=== PATIENT | male | born 1990 | race African-American/Black ===

== ENCOUNTER 2025-01-05 13:02 | Emergency (ER) | payer SELFPAY ==
--- NOTE | 2025-01-05 13:17 | ER ---
Nurse's Notes [facility] Name: Herson Ellis Age: 34 yrs Sex: Male : 1990 Arrival Date: 01/05/2025 Time: 13:02 Bed 15 Private MD: Diagnosis: Encounter for general adult medical examination without abnormal findings Presentation: 01/05 13:10 Chief complaint: EMS states: EMS states family pt is angry about something, they are jp5 unsure what pt is mad about. Pt has been walking around on [address] all day and laying down at business throughout the day today. EMS states they have had 3 visits with pt today and pt is uncooperative not speaking. Coronavirus screen: Client denies travel out of the [place] in the last 14 days. At this time, unable to obtain information related to travel outside the [place] At this time, the client does not indicate any symptoms associated with coronavirus-19. Ebola Screen: No symptoms or risks identified at this time. Initial Sepsis Screen: Does the patient meet any 2 criteria? No. Patient's initial sepsis screen is negative. Does the patient have a suspected source of infection? No. Patient's initial sepsis screen is negative. Risk Assessment: Do you want to hurt yourself or someone else? Patient reports no desire to harm self or others. Onset of symptoms was January 05, 2025. 13:10 Method Of Arrival: EMS: [facility] 13:10 Acuity: [id number] 3 jp5 Triage Assessment: 13:10 General: Appears in no apparent distress. unkempt, Behavior is calm, uncooperative. jp5 Pain: Denies pain. Historical: - Allergies: 13:13 No Known Allergies; jp5 - Immunization history:: Adult Immunizations unknown. - Infectious Disease History:: Denies. - Social history:: Patient/guardian denies using alcohol, street drugs, IV drugs. Assessment: 13:17 General: Unable to complete triage assessment, pt will not answer questions and began jp5 walking out of ER room. ER MD followed pt around ER, pt able to answer orientation questions correctly, pt is A\T\Ox4 and walked out of ER. Pt showed no signs of distress. No KIMBERLY on pt. . ED Course: 13:06 Patient arrived in ED. ll1 13:08 Pramod Ramirez DO is Attending Physician. ms3 13:10 Melida Cavazos, RN is Primary Nurse. jp5 13:13 Triage completed. jp5 13:13 Arm band placed on right wrist. jp5 Administered Medications: No medications were administered Outcome: 13:15 Discharged to home ambulatory, jp5 13:15 Condition: stable 13:15 Discharge instructions given to patient, Instructed on pt would not listen to instructions and walked out of ER 13:17 Discharge ordered by MD. ms3 13:23 Patient left the ED. jp5 Signatures: Celina Vines, RN RN ll1 Pramod Ramirez DO DO ms3 Melida Cavazos, RN RN jp5
--- NOTE | 2025-01-05 13:17 | EDPHYS ---
Physician Documentation [facility] Name: Herson Ellis Age: 34 yrs Sex: Male : 1990 Arrival Date: 01/05/2025 Time: 13:02 Bed 15 Private MD: ED Physician Pramod Ramirez HPI: 01/05 13:18 This 34 yrs old Black Male presents to ER via EMS with complaints of walking up and ms3 down [address] sleeping in front of offices. 13:18 34-year-old male presents to the emergency department via [facility] after walking up ms3 and down to [address] and sleeping in front of businesses. Patient has refused to talk with EMS. On exam patient denies pain. Patient states he would just like to sit in the room. Patient denies nausea, vomiting, chest pain, shortness of breath.. Historical: - Allergies: 13:13 No Known Allergies; jp5 - Immunization history:: Adult Immunizations unknown. - Infectious Disease History:: Denies. - Social history:: Patient/guardian denies using alcohol, street drugs, IV drugs. ROS: 13:18 Constitutional: Negative for fever, and chills. Cardiovascular: Negative for chest ms3 pain, and palpitations. Respiratory: Negative for shortness of breath, cough, wheezing, and pleuritic chest pain, Abdomen/GI: Negative for abdominal pain, nausea, vomiting, diarrhea, and constipation, MS/Extremity: Negative for injury and deformity, Psych: Negative for depression, anxiety, suicide ideation, homicidal ideation, and hallucinations, Exam: 13:18 Constitutional: This is a well developed, well nourished patient who is awake, alert, ms3 and in no acute distress. Head/Face: Normocephalic, atraumatic. Respiratory: Lungs have equal breath sounds bilaterally, clear to auscultation and percussion. No rales, rhonchi or wheezes noted. No increased work of breathing, no retractions or nasal flaring. Abdomen/GI: Soft, non-tender, with normal bowel sounds. No distension or tympany. No guarding or rebound. No evidence of tenderness throughout. 13:18 Skin: Warm, dry with normal turgor. Normal color with no rashes, no lesions, and no evidence of cellulitis. MS/ Extremity: Pulses equal, no cyanosis. Neurovascular intact. Full, normal range of motion. 13:18 Cardiovascular: Rate: tachycardic, Rhythm: regular, Pulses: no pulse deficits are appreciated, Heart sounds: normal, normal S1and S2, MDM: 13:08 Medical Screening Exam initiated ms3 13:18 Differential Diagnosis Rhabdo versus situational disorder versus electrolyte ms3 abnormality versus dehydration. Data reviewed: nurses notes, and as a result, I will discharge patient. Counseling: I had a detailed discussion with the patient and/or guardian regarding. Refusal of service: The patient/guardian displays adequate decision making capability and despite a detailed discussion of alternatives, benefits, risks, and consequences refuses: all lab tests. ED course: Patient has decided to refuse labs and IVF. At this time, I reevaluated the patient and discussed the following: a. Capacity: The patient has the capacity to communicate, understand information, and logically process the decision making process. b. Communication of risks: At bedside, I discussed potential risks, outcomes, and alternative approaches in a patientcentered manner. The patient was informed of the specific risks of undiagnosed illness, including worsening condition and . The patient understands that they are welcome to return at any time to complete the workup. Patient is discharged from my care with informed refusal.. Administered Medications: No medications were administered Disposition Summary: 01/05/25 13:17 Discharge Ordered Notes: Location: Home ms3 Condition: Stable ms3 Diagnosis - Encounter for general adult medical examination without abnormal findings ms3 Followup: ms3 - With: Private Physician - When: 2 - 3 days - Reason: Recheck today's complaints Discharge Instructions: - Discharge Summary Sheet ms3 - Medical Screening Exam ms3 Forms: - Medication Reconciliation Form ms3 - Antibiotic Education ms3 - Prescription Opioid Use ms3 - Patient Portal Instructions ms3 - Leadership Thank You Letter ms3 Signatures: Dispatcher [employer] EDPramod Barnard DO DO ms3 Melida Cavazos, RN RN jp5
== END 2025-01-05 13:23 | disposition home or self-care (01) ==
LOC: ER 13:02
DX: Z71.1 Person with feared health complaint in whom no diagnosis is made (principal)
CPT/HCPCS: 99283

== ENCOUNTER 2025-01-07 01:28 | Emergency (ER) | payer SELFPAY ==
[2025-01-07 02:04] LABS: Absolute Lymphocytes (CBC) 1.5 K/uL (0.7-4.9); Hematocrit 44.9 % (39.6-49.0); Hemoglobin 15.6 g/dL (13.6-17.9); MCH 29.5 pg (27.0-35.0); MCHC 34.8 g/dL (32.0-36.0); MCV 84.8 fL (80-100); MPV 8.9 fL (7.6-11.3); Nucleated RBC Absolute Count 0.0 (0-0); Nucleated Red Blood Cells % 0.1 % (0-0); RBC Red Blood Cell Count 5.30 M/uL (4.33-5.43); White Blood Count 7.20 thou/uL (4.3-10.9)
[2025-01-07 02:13] LABS: PT Prothrombin Time 13.1 SECONDS (10-13.0); PTT, Activated Partial Thromb 28.8 SECONDS (27.2-37.4); Protime INR 1.16
[2025-01-07 02:24] LABS: ALT/SGPT 37.0 U/L (16-61); AST/SGOT 35.0 U/L (15-37); Albumin 4.5 g/dL (3.4-5.0); Albumin/Globulin Ratio 1.0 (1.1-1.8); Alkaline Phosphatase 53.0 U/L (45-117); Anion Gap 11.0 mEq/L (5.0-15.0); BUN Blood Urea Nitrogen 38.0 mg/dL (7-18); Bilirubin Indirect, Calculated 0.7 mg/dL (0.2-0.8); Globulin 4.7 g/dL (2.3-3.5); Glucose Level 112.0 mg/dL (74-106); Potassium 4.0 mEq/L (3.5-5.1); Troponin High Sensitivity 20.0 pg/mL (<58.9)
--- NOTE | 2025-01-07 02:29 | RAD REPORT ---
EXAM: CT Head Without Intravenous Contrast CLINICAL HISTORY: The patient is 34 years old and is Male; MENTAL STATUS CHANGE TECHNIQUE: Axial computed tomography images of the head/brain without intravenous contrast. Sagittal and cor onal reformatted images were created and reviewed. This CT exam was performed using one or more of the following dose reduction techniques: automated exposure control, adjustment of the mA and/or kV according to patient size, and/or use of iterative reconstruction technique. COMPARISON: No relevant prior studies available. FINDINGS: BRAIN: Unremarkable. The ramos-white matter differentiation is preserved . No hemorrhage. No s ignificant white matter disease. No edema. No extra-axial fluid collections. VENTRICLES: Unremarkable. No ventriculomegaly. BONES/JOINTS: No acute fracture. SOFT TISSUES: Unremarkable. SINUSES: Unremarkable as visualized. No acute sinusitis. MASTOID AIR CELLS: Unremarkable as visualized. No mastoid effusion. ORBITS: Unremarkable as visualized. IMPRESSION: No acute intracranial findings. Electronically signed by: Elisa Oliver MD 01/07/2025 02:26 AM CDT RP Due to temporary technical issues with the PACS/[employer] reporting system, reports are being servando d by the in-house radiologist without review as a courtesy to ensure prompt reporting the interpreting radiologist is fully responsible for the content of the report. Transcribed Date/Time: 01/07/2025 2:29 AM
--- NOTE | 2025-01-07 03:31 | RAD REPORT ---
EXAM: CT Angiography Head With Intravenous Contrast CLINICAL HISTORY: The patient is 34 years old and is Male; CONFUSED TECHNIQUE: Axial computed tomographic angiography images of the head with intravenous contrast. S agittal and coronal reformatted images were created and reviewed. This CT exam was performed using one or more of the following dose reduction techniques: automated exposure control, adjustmen t of the mA and/or kV according to patient size, and/or use of iterative reconstruction technique. MIP reconstructed images were created and reviewed. COMPARISON: No relevant prior studies available. FINDINGS: Right internal carotid artery: No acute findings. Intracranial segment is patent with no signif icant stenosis. No aneurysm. Right anterior cerebral artery: Unremarkable. No occlusion or significant stenosis. No aneury sm. Right middle cerebral artery: Unremarkable. No occlusion or significant stenosis. No aneurysm . Right posterior cerebral artery: Unremarkable. No occlusion or significant stenosis. No aneur ysm. Right vertebral artery: Unremarkable as visualized. Left internal carotid artery: No acute findings. Intracranial segment is patent with no signifi cant stenosis. No aneurysm. Left anterior cerebral artery: Unremarkable. No occlusion or significant stenosis. No aneurys m. Left middle cerebral artery: Unremarkable. No occlusion or significant stenosis. No aneurysm. Left posterior cerebral artery: Unremarkable. No occlusion or significant stenosis. No aneury sm. Left vertebral artery: Unremarkable as visualized. Basilar artery: Unremarkable. No occlusion or significant stenosis. No aneurysm. * A single impression for all exams can be found at the end of this report EXAM: CT Angiography Neck With Intravenous Contrast CLINICAL HISTORY: The patient is 34 years old and is Male; CONFUSED TECHNIQUE: Routine carotid CT angiography protocol was performed with intravenous contrast. NASCE T criteria using the distal ICAs for comparison were used for evaluation of stenoses. Sagittal and coronal reformatted images were created and reviewed. This CT exam was performed using one or m ore of the following dose reduction techniques: automated exposure control, adjustment of the mA and/or kV according to patient size, and/or use of iterative reconstruction technique. MIP reconstr ucted images were created and reviewed. COMPARISON: None. FINDINGS: VASCULATURE: Right common carotid artery: Unremarkable. No occlusion or significant stenosis. No dissectio n. Right internal carotid artery: Unremarkable. Extracranial segment is patent with no occlusion o r significant stenosis. No dissection. Right external carotid artery: Unremarkable. No occlusion. Right vertebral artery: Unremarkable. No occlusion or significant stenosis. No dissection. Left common carotid artery: Unremarkable. No occlusion or significant stenosis. No dissection . Left internal carotid artery: Unremarkable. Extracranial segment is patent with no occlusion or significant stenosis. No dissection. Left external carotid artery: Unremarkable. No occlusion. Left vertebral artery: Unremarkable. No occlusion or significant stenosis. No dissection. NECK: Bones/joints: Unremarkable. No acute fracture. Soft tissues: Unremarkable. Lung apices: Clear. CAROTID STENOSIS REFERENCE USING NASCET CRITERIA: % ICA stenosis = (1 - narrowest ICA diameter/diameter of distal cervical ICA) x 100. Mild - <50% stenosis. Moderate - 50-69% stenosis. Severe - 70-94% stenosis. Near occlusion - 95-99% stenosis. Occluded - 100% stenosis. * A single impression for all exams can be found at the end of this report IMPRESSION: CT Angiography Head With Intravenous Contrast: No occlusion or significant stenosis. No aneurysm. CT Angiography Neck With Intravenous Contrast: No significant stenosis. No dissection or occlusion. Electronically signed by: Yovany Powell MD 01/07/2025 02:54 AM CDT RP 8 Due to temporary technical issues with the PACS/[employer] reporting system, reports are being servando d by the in-house radiologist without review as a courtesy to ensure prompt reporting the interpreting radiologist is fully responsible for the content of the report. Transcribed Date/Time: 01/07/2025 3:30 AM
[2025-01-07] MEDS ORDERED: NA CHLORIDE 0.9% 2,000 ML ONE (04:30)
--- NOTE | 2025-01-07 05:52 | RAD REPORT ---
EXAM: XR Chest, 1 View CLINICAL HISTORY: The patient is 34 years old and is Male; TRAUMA TECHNIQUE: Frontal view of the chest. COMPARISON: No relevant prior studies available. FINDINGS: LUNGS: Unremarkable. No consolidation. PLEURAL SPACE: Unremarkable. No pneumothorax. HEART: Unremarkable. No cardiomegaly. MEDIASTINUM: Unremarkable. Normal mediastinal contour. BONES/JOINTS: Unremarkable. No acute fracture. UPPER ABDOMEN: Unremarkable as visualized. IMPRESSION: No acute cardiopulmonary process. Electronically signed by: Elisa Oliver MD 01/07/2025 02:26 AM CDT Due to temporary technical issues with the PACS/[employer] reporting system, reports are being servando d by the in-house radiologist without review as a courtesy to ensure prompt reporting. The interpreting radiologist is fully responsible for the content of the report. Transcribed Date/Time: 01/07/2025 5:52 AM
--- NOTE | 2025-01-07 06:23 | EDPHYS ---
Physician Documentation [facility] Name: Herson Ellis Age: 34 yrs Sex: Male : 1990 Arrival Date: 01/07/2025 Time: 01:28 Bed IW10 Private MD: ED Physician Kushal Dupont HPI: 01/07 06:07 This 34 yrs old Black Male presents to ER via EMS with complaints of Altered Mental tt7 Status. 06:07 Patient was found on the shoulder of the road laying down, he was awake but would only tt7 respond to some questions with one-word answers, he was staring straight ahead and laying supine with arms stiff out to his side, apparently EMS had responded to multiple calls yesterday regarding this patient and headache acting abnormally, at that time he was awake and communicative, HPI is limited due to patient not answering my questions other than the stated "water". Historical: - Allergies: 02:01 Unable to obtain; lg3 - Home Meds: 02:01 Unable to obtain [Active]; lg3 - PMHx: 02:01 Unable to Obtain; lg3 - PSHx: 02:01 Unable to Obtain; lg3 - Immunization history:: Adult Immunizations unknown. - Infectious Disease History:: Denies. - Social history:: Smoking status: unknown. ROS: 06:09 Constitutional: negative for fever. tt7 06:09 Unable to obtain ROS due to patient being uncooperative, Exam: 06:09 Constitutional: vital signs reviewed, well appearing. Head/Face: normocephalic, tt7 atraumatic. Eyes: no conjunctival injection, anicteric sclerae, PERRL. ENT: mucus membranes moist. Neck: trachea midline, no JVD, no meningismus. Chest/axilla: normal chest wall appearance and motion, nontender, no crepitus. Cardiovascular: regular rate and rhythm, no murmurs, no rubs, no lower extremity edema. Respiratory: normal respiratory effort, no accessory muscle use, lungs CTAB. Abdomen/GI: soft, nondistended, nontender, no guarding or rebound Skin: warm, dry, intact, normal turgor, normal color, no rash. MS/ Extremity: normal ROM of extremities, no gross deformities. 06:09 Neuro: Orientation: unable to test, the patient refuses to cooperate, Mentation: responsive to voice Memory: unable to test, the patient refuses to cooperate, Cranial nerves: unable to test, the patient refuses to cooperate, Cerebellar function: unable to test, the patient refuses to cooperate, Motor: moves all fours, Sensation: unable to test, the patient refuses to cooperate, 06:09 Psych: Behavior/mood is uncooperative, Affect is flat, Vital Signs: 02:16 BP 143 / 85; Pulse 67; Resp 17 S; Temp 97.9(A); Pulse Ox 99% on R/A; Weight 90.72 kg lg3 (R); Height 6 ft. 4 in. (R); 03:17 BP 143 / 89; Pulse 87; Resp 19; Pulse Ox 97% on R/A; mf3 06:14 BP 119 / 79; Pulse 71; Resp 17 S; Pulse Ox 98% on R/A; lg3 02:16 Body Mass Index 24.34 (90.72 kg, 193.04 cm) lg3 NIH Stroke Scale Scores: 02:01 NIHSS Score: 0 lg3 MDM: 01:32 Medical Screening Exam initiated tt7 06:12 Differential Diagnosis: CVA, electrolyte abnormality, alcohol intoxication, tt7 hypoglycemia, intracranial bleed, drug intoxication, psychiatric disorder. Data reviewed: vital signs, nurses notes, old medical records, lab test result(s), cardiac enzymes, CBC, drug level(s), electrolytes, hepatic panel, EKG, radiologic studies, CT scan, plain films. Test considered but Not performed: MRI: not available. Historians other than the Patient: EMS: . ED course: I have reviewed and independently interpreted the patient's chest x-ray. On my interpretation, chest x-ray demonstrates no radiographic evidence of acute cardiopulmonary disease. I have reviewed and independently interpreted the patient's EKG performed on 01/07/2025 at 0200. On my interpretation, sinus bradycardia, ventricular rate 58 bpm, normal axis, normal QRS interval, normal ST segments, no STEMI. ED course: 34-year-old who presented with altered mental status, was awake but very uncooperative, had a bizarre affect, patient's vital signs were stable, neurologic exam was limited due to the patient's uncooperation, he was taken to CT immediately where noncontrast CT imaging of the brain was performed, on my interpretation there was no intracranial hemorrhage, CT angiograms were performed which did not show any large vessel occlusion, remainder of stroke workup was performed, EKG was reassuring, troponin was negative, laboratory studies did not show any significant acute abnormalities requiring further evaluation, patient would intermittently have bizarre behavior and become agitated, he was given 2 L of IV fluid and IV droperidol for his agitation, suspect that his symptoms are due to drug abuse, UDS is pending, I have very low suspicion that patient is having a medical cause of his altered mental status, apparently for the past several days he has been upset at family and has been very uncooperative and acting strange, refusing to cooperate with EMS or medical staff, patient's brother came to visit him in the emergency department and patient was acting appropriately and interactive, patient's brother left it once again became agitated and uncooperative, we will continue to observe the patient in the emergency department but I do not suspect dangerous emergent condition. 06:23 ED course: Emergency department evaluation is reassuring. I do not suspect tt7 life-threatening process. Patient is stable and not in need of emergent medical intervention. I had a detailed discussion with the patient regarding the historical points, exam findings, emergency department evaluation, diagnostic results, and the discharge diagnosis. I discussed outpatient management of the patient's condition. I discussed the need for outpatient follow-up with primary care and relevant specialist. I discussed return precautions including the need to return to the ED if symptoms do not improve, worsen, or if there are any questions or concerns that arise at home. The patient was discharged in stable condition. 11:22 Counseling: I had a detailed discussion with the patient and/or guardian regarding the rn historical points, exam findings, and any diagnostic results supporting the discharge/admit diagnosis, lab results, radiology results, the need for outpatient follow up, to return to the emergency department if symptoms worsen or persist or if there are any questions or concerns that arise at home. ED course: After medication with Haldol, patient became more communicative, pleasant and refuses psychiatric transfer. Patient is not suicidal or homicidal. Patient walked out of emergency room on his own power. No indication at this time to get emergency skilled nursing order.. 01/07 01:33 Order name: Basic Metabolic Panel; Complete Time: 03:07 tt7 01/07 01:33 Order name: CBC with Diff; Complete Time: 03:07 01/07 01:33 Order name: High Sensitivity Troponin; Complete Time: 03:07 01/07 01:33 Order name: Protime (+inr); Complete Time: 03:07 01/07 01:33 Order name: Ptt, Activated; Complete Time: 03:07 01/07 01:34 Order name: Hepatic Function; Complete Time: 03:07 01/07 04:32 Order name: CREATININE WHOLE BLOOD; Complete Time: 05:58 EDMS 01/07 01:29 Order name: CT Head Brain wo Cont; Complete Time: 07:08 kmf 01/07 01:33 Order name: CT Head Angio; Complete Time: 07:08 01/07 01:33 Order name: CT Neck Angio; Complete Time: 07:08 01/07 01:33 Order name: Stroke CXR 1 View; Complete Time: 07:08 01/07 01:33 Order name: Accucheck; Complete Time: 02:05 01/07 01:33 Order name: Cardiac monitoring; Complete Time: 02:05 01/07 01:33 Order name: EKG - Nurse/Tech; Complete Time: 02:05 01/07 01:33 Order name: IV Saline Lock; Complete Time: 02:05 01/07 01:33 Order name: Labs collected and sent; Complete Time: 02:05 01/07 01:33 Order name: NPO; Complete Time: 02:05 01/07 01:33 Order name: O2 Per Protocol; Complete Time: 02:05 01/07 01:33 Order name: O2 Sat Monitoring; Complete Time: 02:10 01/07 01:33 Order name: Stroke Swallow Screen; Complete Time: 02:10 Administered Medications: 04:46 Drug: Droperidol IVP 2.5 mg IVP once Route: IVP; Site: right antecubital; lg3 06:15 Follow up: Response: No adverse reaction; Marked relief of symptoms; RASS: Drowsy (-1) lg3 04:46 Drug: NS 0.9% IV 2000 ml IV at 1 bolus Per protocol; to be given as a bolus over 60 lg3 minutes Route: IV; Rate: 1 bolus; Site: left antecubital; 06:15 Follow up: Response: No adverse reaction; IV Status: Completed infusion; IV Intake: lg3 2000ml 08:40 Drug: HALdol (as decanoate) IM 5 mg IM once Route: IM; Site: right deltoid; jl7 08:42 Not Given (Duplicate Order): haloperidol2.5 mg IVP once rn Disposition: 06:24 Co-signature as Attending Physician, Jeb Desouza DO. tt7 Disposition Summary: 01/07/25 11:24 Discharge Ordered Notes: Location: Home(01/07/25 11:24) rn Problem: new(01/07/25 11:24) rn Symptoms: have improved(01/07/25 11:24) rn Condition: Stable(01/07/25 11:24) rn Diagnosis - Catatonic disorder due to known physiological condition(01/07/25 11:24) rn - Altered mental status, unspecified(01/07/25 11:24) rn - Dehydration rn Followup: rn - With: Private Physician - When: As needed - Reason: Recheck today's complaints, Re-evaluation by your physician Forms: - Medication Reconciliation Form rn - Antibiotic beehive kiln charcoal burner - Prescription Opioid Use rn - Patient Portal Instructions rn - Leadership Thank You Letter rn NIH Stroke Scale - NIH Stroke Score Date: 01/07/2025 Time: 02:01 Total Score = 0 10. Dysarthria (speech clarity - read or repeat words) - 0(Normal) 11. Extinction and Inattention (visual/tactile/auditory/spatial/personal) - 0(No abnormality) 1a. Level of Consciousness (LOC) - 0(Alert) 1b. Level of Consciousness (LOC) (Month \\T\\ Age) - 0(Both) 1c. LOC Commands (Open \\T\\ Closes Eyes/Convertible Sofa Bedspring Tester) - 0(Both) 2. Best Gaze (Lateral Gaze Paresis) - 0(Normal) 3. Visual Field Loss - 0(No visual loss) 4. Facial Palsy - 0(Normal) 5a. Left Arm: Motor (10-second hold) - 0(No drift) 5b. Right Arm: Motor (10-second hold) - 0(No drift) 6a. Left Leg: Motor (5-second hold - always test supine) - 0(No drift) 6b. Right Leg: Motor (5-second hold - always test supine) - 0(No drift) 7. Limb Ataxia (finger/nose \\T\\ heel/navarro - test with eyes open) - 0(Absent) 8. Sensory Loss (pinprick arms/legs/face) - 0(Normal) 9. Best Language: Aphasia (description/naming/reading) - 0(No aphasia) Initials: lg3 Signatures: Dispatcher [employer] EDMS Kushal Dupont MD MD rn Leal, Jahala RN RN jl7 Olivia Rivers RN RN lg3 Jeb Desouza, DO tt7 Corrections: (The following items were deleted from the chart) 01:34 01:34 BASIC METABOLIC PANEL+C.LAB.BRZ ordered. EDMS EDMS 01:34 01:34 CBC+H.LAB.BRZ ordered. EDMS EDMS 01:34 01:34 Troponin High Sensitivity+C.LAB.BRZ ordered. EDMS EDMS 01:34 01:34 PROTIME (+INR)+COAG.LAB.BRZ ordered. EDMS EDMS 01:34 01:34 PTT, ACTIVATED+COAG.LAB.BRZ ordered. EDMS EDMS 01:34 01:34 Head Angio+CT.RAD.BRZ ordered. EDMS EDMS 01:34 01:34 Neck Angio+CT.RAD.BRZ ordered. EDMS EDMS 01:34 01:34 Chest Single View+RAD.RAD.BRZ ordered. EDCO EDMS 07:58 06:22 Home tt7 rn 07:58 06:22 an acute exacerbation tt7 rn 07:58 06:22 have improved tt7 rn 07:58 06:22 Stable tt7 rn 07:58 06:22 Restlessness and agitation tt7 rn 07:58 06:23 ELEVATED SERUM CREATININE tt7 rn 11: 07:58 rn rn 11: 07:58 Psych Facility rn rn 11: 07:58 Higher level of care rn rn 11: 07:58 Stable rn rn 11: 07:58 an ongoing problem rn rn 11: 07:58 are unchanged rn rn 11: 07:58 Catatonic disorder due to known physiological condition rn rn 11: 07:58 Altered mental status, unspecified rn rn
--- NOTE | 2025-01-07 06:23 | ER ---
Nurse's Notes [facility] Name: Herson Ellis Age: 34 yrs Sex: Male : 1990 Arrival Date: 01/07/2025 Time: 01:28 Bed IW10 Private MD: Diagnosis: Catatonic disorder due to known physiological condition;Altered mental status, unspecified;Dehydration Presentation: 01/07 01:59 Chief complaint: EMS states: [place] [address] [place]. PT not lg3 answering/following commands for EMS. On arrival to ED, PT would only state "Water" and not answering questions. Once in room, PT verbalizes wants to staff and family at bedside. complaints of pain to feet and ankles. Coronavirus screen: Client denies travel out of the [place] in the last 14 days. At this time, the client does not indicate any symptoms associated with coronavirus-19. Ebola Screen: No symptoms or risks identified at this time. Risk Assessment: Do you want to hurt yourself or someone else? Unable to obtain. Onset of symptoms is unknown. 01:59 Method Of Arrival: EMS: [facility] lg3 01:59 Acuity: [id number] 3 lg3 01:59 Initial Sepsis Screen: Does the patient meet any 2 criteria? No. Patient's initial lg3 sepsis screen is negative. Does the patient have a suspected source of infection? No. Patient's initial sepsis screen is negative. Triage Assessment: 02:01 General: Appears in no apparent distress. comfortable, Behavior is calm, flat, quiet. lg3 Pain: Complains of pain in right foot and left foot. EENT: No deficits noted. No signs and/or symptoms were reported regarding the EENT system. Neuro: Cortes Agitation-Sedation Scale (RASS): 0 - Alert and Calm Level of Consciousness is awake, Oriented to person, Speech is normal, Facial symmetry appears normal, Pupils are PERRLA, Intact. Cardiovascular: No deficits noted. Capillary refill < 3 seconds Clubbing of nail beds is absent JVD is absent Patient's skin is warm and dry. Respiratory: No deficits noted. Airway is patent Respiratory effort is even, unlabored, Respiratory pattern is regular, symmetrical. GI: No deficits noted. No signs and/or symptoms were reported involving the gastrointestinal system. Abdomen is round non-distended. : No signs and/or symptoms were reported regarding the genitourinary system. Derm: No deficits noted. No signs and/or symptoms reported regarding the dermatologic system. Skin is intact, is healthy with good turgor, Skin is dry, Skin is normal, Skin temperature is warm. Musculoskeletal: No deficits noted. No signs and/or symptoms reported regarding the musculoskeletal system. Circulation, motion, and sensation intact. Range of motion: intact in all extremities. Historical: - Allergies: 02:01 Unable to obtain; lg3 - Home Meds: 02:01 Unable to obtain [Active]; lg3 - PMHx: 02:01 Unable to Obtain; lg3 - PSHx: 02:01 Unable to Obtain; lg3 - Immunization history:: Adult Immunizations unknown. - Infectious Disease History:: Denies. - Social history:: Smoking status: unknown. Screenin:04 [facility] ED Fall Risk Assessment (Adult) History of falling in the last 3 months, lg3 including since admission No falls in past 3 months (0 pts) Confusion or Disorientation No (0 pts) Intoxicated or Sedated No (0 pts) Impaired Gait No (0 pts) Mobility Assist Device Used No (0 pt) Altered Elimination No (0 pt) Score/Fall Risk Level 0 - 2 = Low Risk Oriented to surroundings, Maintained a safe environment, Educated pt \\T\\ family on fall prevention, incl call for assistance when getting out of bed, Assessed \\T\\ reinforced patient's understanding of fall precautions. Abuse screen: Denies threats or abuse. Denies injuries from another. Nutritional screening: No deficits noted. Tuberculosis screening: No symptoms or risk factors identified. 02:11 [place] Swallow Protocol Exclusion Criteria: Unable to remain alert for testing: No NPO lg3 for medical/surgical reason by provider order No Exclusion Criteria Result: Proceed Brief Cognitive Screen What is your name? Normal, Where are you right now? Normal, What year is it? Normal. Oral Mechanism Examination Facial Symmetry: Normal, Motion: Normal, Lip Closure: Normal, Oral Mechanism Result: Normal. 3 oz Water Swallow Challenge: Pt able to drink all water without stopping, coughing, choking or throat clearing: Yes Result: PASS. Assessment: 02:04 General: see triage assessment. lg3 03:00 Reassessment: No changes from previously documented assessment. Patient and/or family lg3 updated on plan of care and expected duration. Pain level reassessed. General: Appears in no apparent distress. Behavior is anxious, restless. 05:04 Reassessment: Patient appears in no apparent distress at this time. No changes from lg3 previously documented assessment. Patient and/or family updated on plan of care and expected duration. Pain level reassessed. Patient is alert, oriented x 3, equal unlabored respirations, skin warm/dry/pink. 06:14 Reassessment: Patient appears in no apparent distress at this time. No changes from lg3 previously documented assessment. Patient and/or family updated on plan of care and expected duration. Pain level reassessed. Patient is alert, oriented x 3, equal unlabored respirations, skin warm/dry/pink. 07:15 Reassessment: Uncle Viral [phone]. hb 07:59 Reassessment: Uncle at bedside with Dr. Dupont to discuss POC. Pt not responding, hb looking around without interacting or answering questions, uncle concerned about patient safety due to repeated episodes over the last few days where pt has been found lying in roadways, involving EMS and PD. 08:45 Reassessment: Pt refusing vitals equipment and telemetry monitor at this time, SHON estrada notifed. 09:32 Reassessment: pt up walking, oriented to person, place, time, pt returned to ER bed 8, Dr. Dupont Notified. 10:44 Reassessment: pt noted to be walking out of room, asked pt if he wants to speak to the doctor, no response, asked pt if he spoke with [facility] screener, no response, continued walking out of dept , steady gait , NAD. Vital Signs: 02:16 BP 143 / 85; Pulse 67; Resp 17 S; Temp 97.9(A); Pulse Ox 99% on R/A; Weight 90.72 kg lg3 (R); Height 6 ft. 4 in. (R); 03:17 BP 143 / 89; Pulse 87; Resp 19; Pulse Ox 97% on R/A; 3 06:14 BP 119 / 79; Pulse 71; Resp 17 S; Pulse Ox 98% on R/A; lg3 02:16 Body Mass Index 24.34 (90.72 kg, 193.04 cm) lg3 NIH Stroke Scale Scores: 02:01 NIHSS Score: 0 3 ED Course: 01:29 Patient arrived in ED. kmf 01:32 Jeb Desouza DO is Attending Physician. tt7 01:51 Stroke CXR 1 View In Process Unspecified. EDMS 01:52 CT Head Brain wo Cont In Process Unspecified. EDMS 01:52 CT Head Angio In Process Unspecified. EDMS 01:52 CT Neck Angio In Process Unspecified. EDMS 01:59 Olivia Rivers, RN is Primary Nurse. lg3 02:01 Triage completed. lg3 02:01 Arm band placed on right wrist. lg3 02:04 Patient has correct armband on for positive identification. Placed in gown. Bed in low lg3 position. Call light in reach. Side rails up X2. Client placed on continuous cardiac and pulse oximetry monitoring. NIBP monitoring applied. vehicle monitor technician on. Door closed. Noise minimized. Warm blanket given. Pillow given. Family accompanied patient. 02:04 Initial lab(s) drawn, by me, sent to lab. EKG done, by ED staff, reviewed by Jeb lg3 Lyly NEGRON. Inserted saline lock: 20 gauge in right antecubital area, using aseptic technique. Blood collected. Flushed with 10 mL NS. 02:05 ETOH Level Sent. lg3 02:05 Hepatic Function Sent. lg3 06:41 No provider procedures requiring assistance completed. IV discontinued, intact, lg3 bleeding controlled, No redness/swelling at site. Pressure dressing applied. 07:58 Attending Physician role handed off by Jeb Desouza DO rn 07:58 Kushal Dupont MD is Attending Physician. rn 08:00 Provided Education on: .. hb Administered Medications: 04:46 Drug: Droperidol IVP 2.5 mg IVP once Route: IVP; Site: right antecubital; lg3 06:15 Follow up: Response: No adverse reaction; Marked relief of symptoms; RASS: Drowsy (-1) lg3 04:46 Drug: NS 0.9% IV 2000 ml IV at 1 bolus Per protocol; to be given as a bolus over 60 lg3 minutes Route: IV; Rate: 1 bolus; Site: left antecubital; 06:15 Follow up: Response: No adverse reaction; IV Status: Completed infusion; IV Intake: lg3 2000ml 08:40 Drug: HALdol (as decanoate) IM 5 mg IM once Route: IM; Site: right deltoid; jl7 08:42 Not Given (Duplicate Order): haloperidol2.5 mg IVP once airborne operations superintendent: 02:04 VIS not applicable for this client. lg3 Intake: 06:15 IV: 2000ml; Total: 2000ml. lg3 Outcome: 06:22 Discharge ordered by MD. tt7 06:41 Discharged to home ambulatory, with family, lg3 06:41 Condition: stable 06:41 Discharge instructions given to patient, family, Instructed on discharge instructions, follow up and referral plans. Demonstrated understanding of instructions, follow-up care, 07:58 ER care complete, transfer ordered by MD. rn 11:24 Discharge ordered by MD. rn 11:33 Patient left the ED. NIH Stroke Scale - NIH Stroke Score Date: 01/07/2025 Time: 02:01 Total Score = 0 10. Dysarthria (speech clarity - read or repeat words) - 0(Normal) 11. Extinction and Inattention (visual/tactile/auditory/spatial/personal) - 0(No abnormality) 1a. Level of Consciousness (LOC) - 0(Alert) 1b. Level of Consciousness (LOC) (Month \\T\\ Age) - 0(Both) 1c. LOC Commands (Open \\T\\ Closes Eyes/Armature Straightener) - 0(Both) 2. Best Gaze (Lateral Gaze Paresis) - 0(Normal) 3. Visual Field Loss - 0(No visual loss) 4. Facial Palsy - 0(Normal) 5a. Left Arm: Motor (10-second hold) - 0(No drift) 5b. Right Arm: Motor (10-second hold) - 0(No drift) 6a. Left Leg: Motor (5-second hold - always test supine) - 0(No drift) 6b. Right Leg: Motor (5-second hold - always test supine) - 0(No drift) 7. Limb Ataxia (finger/nose \\T\\ heel/navarro - test with eyes open) - 0(Absent) 8. Sensory Loss (pinprick arms/legs/face) - 0(Normal) 9. Best Language: Aphasia (description/naming/reading) - 0(No aphasia) Initials: lg3 Signatures: Dispatcher [employer] EDAngie Beyer RN RN iw Nieto, Roman, MD MD rn Baxter, Heather, RN RN hb Leal, Jahala, RN RN jl7 Olivia Rivers, RN RN lg3 Kimberley Ballesteros Riddhi, Adriana, RN RN mf3 Jeb Desouza DO DO tt7
[2025-01-07] MEDS ORDERED: HALOPERIDOL LACT 5 MG/ML INJ ONE ×2 (08:27→08:34)
[2025-01-07 11:38] VITALS: TEMP 97.9
[2025-01-07 11:42] VITALS: BP 119/79; O2SAT 98
== END 2025-01-07 11:33 | disposition home or self-care (01) ==
LOC: ER 01:28
DX: R41.82 Altered mental status, unspecified (principal); E86.0 Dehydration; F06.1 Catatonic disorder due to known physiological condition
CPT/HCPCS: 36415; 70450; 70496; 70498; 71045; 80048; 80076; 82565; 84484; 85025; 85610; 85730; 93005; 96361; 96372; 96374; 99285; J1630; J1790; J7030; Q9967